=== PATIENT | male | born 1960 | race Caucasian/White ===

== ENCOUNTER 2018-09-21 09:58 | Emergency (ER) | payer OTHER ==
[~2018-09-21] VITALS: Ht 167.6 cm; Wt 70.0 kg
[2018-09-21 09:59] VITALS: Ht 167.6 cm; Wt 70.0 kg
[2018-09-21] MEDS ORDERED: KETOROLAC 15 MG INJ IM STA (10:32)
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
[2018-09-21] MEDS ORDERED: QUET25TA PO (11:57)
[2018-09-21] MEDS ORDERED: HYDR-845 PO (11:57)
[2018-09-21] MEDS ORDERED: IBUP-1542 PO ×2 (12:37→12:45)
[2018-09-21 13:02] VITALS: BP 125/78; PULSE 77; RESP 16
== END 2018-09-21 13:04 | disposition home or self-care (01) ==
LOC: E/R 09:58
DX: S16.1XXA Strain of muscle, fascia and tendon at neck level, initial encounter (principal); F17.210 Nicotine dependence, cigarettes, uncomplicated; Y04.8XXA Assault by other bodily force, initial encounter
CPT/HCPCS: 72125; 96372; J1885; Z7502; Z7610